=== PATIENT | female | born 1970 | race Caucasian/White ===

== ENCOUNTER 2022-06-11 21:31 | Observation (INO) | payer OTHER ==
[2022-06-11 22:35] LABS: BASO % 0.4 % (0-2.0); EOS % 0.7 % (0-4.5); HEMATOCRIT 40.9 % (32.4-45.2); HEMOGLOBIN 13.9 GM/dL (10.7-15.3); LYMPH % 26.8 % (8-40); MCH 29.1 pg (25.7-33.7); MEAN CELL VOLUME 85.9 fl (80-96); MEAN PLT VOLUME 7.3 fl (7.5-11.1); MONO % 9.6 % (3.8-10.2); NEUT % 62.5 % (42.8-82.8); PLATELET COUNT 248 10^3/uL (134-434); RBC 4.77 M/mm3 (3.60-5.2); RDW 13.5 % (11.6-15.6)
[2022-06-11 23:04] LABS: CALCIUM 9.4 mg/dL (8.5-10.1)
[2022-06-11 23:05] LABS: ALBUMIN 4.3 g/dl (3.4-5.0)
[2022-06-11 23:08] LABS: CREATININE 1.3 mg/dL (0.55-1.3)
[2022-06-11 23:10] LABS: BILIRUBIN,TOTAL 0.3 mg/dL (0.2-1)
[2022-06-12] MEDS ORDERED: SODIUM CHLORIDE 1,000 ML IV SCH (07:30)
[2022-06-12 08:11] LABS: HEMATOCRIT 36.1 % (32.4-45.2); HEMOGLOBIN 12.4 GM/dL (10.7-15.3); MCH 29.1 pg (25.7-33.7); MCHC 34.3 g/dl (32.0-36.0); MEAN CELL VOLUME 84.8 fl (80-96); MEAN PLT VOLUME 7.4 fl (7.5-11.1); PLATELET COUNT 248 10^3/uL (134-434); RBC 4.26 M/mm3 (3.60-5.2); RDW 13.5 % (11.6-15.6); WHITE BLOOD COUNT 10.1 K/mm3 (4.0-10.0)
[2022-06-12 08:33] LABS: ALBUMIN 3.5 g/dl (3.4-5.0); BLOOD UREA NITROGEN 13.7 mg/dL (7-18); CALCIUM 8.6 mg/dL (8.5-10.1); MAGNESIUM 2.1 mg/dL (1.8-2.4)
[2022-06-12 08:36] LABS: PHOSPHOROUS 2.7 mg/dL (2.5-4.9)
[2022-06-12 08:37] LABS: TOT PROT 6.9 g/dl (6.4-8.2)
[2022-06-12 08:38] LABS: BILIRUBIN,TOTAL 0.4 mg/dL (0.2-1)
[2022-06-12] MEDS ORDERED: ENOXAPARIN NA (PORCINE) 40 MG/0.4 ML DISP.SYRIN SQ ONE (10:22)
[2022-06-12] MEDS: ENOXAPARIN NA (PORCINE) 40 MG/0.4 ML DISP.SYRIN SQ SCH (11:06)
[2022-06-12 12:35] LABS: COCAINE, UR NEGATIVE (NEGATIVE); METHADONE, UR NEGATIVE (NEGATIVE); OPIATES, URI NEGATIVE (NEGATIVE); PHENCYCLIDINE,URINE NEGATIVE (NEGATIVE); URINE AMPHETAMINES NEGATIVE (NEGATIVE); URINE BENZODIAZEPINES NEGATIVE (NEGATIVE)
[2022-06-12 12:37] LABS: URINE BARBITURATES NEGATIVE (NEGATIVE)
[2022-06-12 13:12] LABS: EPI CELLS 10 /uL (0-25.1); HYALINE CASTS 1 /uL (0-3.1); PH,URINE 5.5 (5.0-8.0); URINE APPEARANCE CLEAR; URINE BACTERIA 232 /uL (0-1359); URINE BILIRUBIN NEGATIVE (NEGATIVE); URINE COLOR YELLOW; URINE GLUCOSE (UA) NEGATIVE (NEGATIVE); URINE KETONE NEGATIVE (NEGATIVE); URINE LEUK ESTERASE TRACE (NEGATIVE); URINE NITRITE NEGATIVE (NEGATIVE); URINE PROTEIN NEGATIVE (NEGATIVE); URINE RBC 4 /uL (0-23.9); URINE UROBILINOGEN 0.2 mg/dL (0.2-1.0); URINE WBC 31 /uL (0-25.8)
[2022-06-13] MEDS: ENOXAPARIN NA (PORCINE) 40 MG/0.4 ML DISP.SYRIN SQ SCH (09:12)
[2022-06-13 10:22] VITALS: BP 119/63; PULSE 65; RESP 18; TEMP 98; BMI 30.1
== END 2022-06-13 15:06 | disposition home or self-care (01) ==
LOC: JER 21:31 → JERBED 06-12 02:29 → J4W 06-13 08:14
PROVIDERS: ADMIT Internal Medicine; ATTEND Nurse Practitioner Acute Care
PROC: 3E023GC Introduction of Other Therapeutic Substance into Muscle, Percutaneous Approach (ICD-10-PCS; principal; 2022-06-12)
PROC: 3E0337Z Introduction of Electrolytic and Water Balance Substance into Peripheral Vein, Percutaneous Approach (ICD-10-PCS; 2022-06-12)
DX: R29.6 Repeated falls (principal); E66.8 Other obesity; Z68.30 Body mass index [BMI] 30.0-30.9, adult; F32.A Depression, unspecified; R45.84 Anhedonia; R45.4 Irritability and anger; R53.81 Other malaise; Z29.8 Encounter for other specified prophylactic measures; P23.4 Congenital pneumonia due to Escherichia coli; R20.0 Anesthesia of skin; W18.39XA Other fall on same level, initial encounter; Y93.89 Activity, other specified; Y92.89 Other specified places as the place of occurrence of the external cause
CPT/HCPCS: 36415; 70450-TC; 70551-TC; 71045-TC-FY; 72125-TC; 72141-TC; 80053; 80307; 81003; 82607; 82962; 83735; 84100; 84443; 84484; 85025; 85027; 87086; 93005; 93010; 96360; 96372; 97116-GP; 97162-GP; 99285-25; C9803-CS; G0378; U0003; U0005